=== PATIENT | female | born 1980 | race Caucasian/White ===

== ENCOUNTER → 2023-01-06 10:17 | Outpatient (BNVA) | payer OTHER, SELFPAY | PROVIDERS: PCP Nurse Practitioner Family; Visit Provider Psychiatry & Neurology Neurology | DX: Z98.2 Presence of cerebrospinal fluid drainage device (principal); G91.9 Hydrocephalus, unspecified; G43.909 Migraine, unspecified, not intractable, without status migrainosus | CPT/HCPCS: 36415; 80053; 82306; 82607; 83735; 83921; 84439; 84443; 84481; 85025 ==